=== PATIENT | male | born 1955 | race African-American/Black ===

== ENCOUNTER 2017-06-30 05:47 | Emergency (ER) | payer OTHER ==
[~2017-06-30] VITALS: Ht 172.7 cm; Wt 85.0 kg
[2017-06-30 05:51] VITALS: BP 143/92
[2017-06-30] MEDS ORDERED: HTN MED (06:51)
[2017-06-30] MEDS ORDERED: [UNRECOGNIZED DRUG - REMARK] (06:51)
[2017-06-30] MEDS ORDERED: IBUPROFEN 200 MG TABLET ONE (06:59)
[2017-06-30] MEDS ORDERED: HYDROcodone/APAP 5/325 TABLET ONE (06:59)
[2017-06-30] MEDS ORDERED: IBUPROFEN 200 MG TABLET PO ONE (07:00)
[2017-06-30] MEDS ORDERED: HYDROcodone/APAP 5/325 TABLET PO ONE (07:00)
== END 2017-06-30 08:19 | disposition home or self-care (01) ==
LOC: ED 07:48
DX: S93.492A Sprain of other ligament of left ankle, initial encounter (principal); S93.432A Sprain of tibiofibular ligament of left ankle, initial encounter; Z85.46 Personal history of malignant neoplasm of prostate; Z88.0 Allergy status to penicillin; X50.1XXA Overexertion from prolonged static or awkward postures, initial encounter; Y93.01 Activity, walking, marching and hiking; Y92.488 Other paved roadways as the place of occurrence of the external cause; Y99.8 Other external cause status
CPT/HCPCS: 99284

== ENCOUNTER 2019-01-04 10:37 | Inpatient (IN) | payer OTHER ==
[~2019-01-04] VITALS: Ht 177.8 cm; Wt 91.5 kg
[~2019-01-04 10:37] MED LIST: HTN MED; [UNRECOGNIZED DRUG - REMARK]
[2019-01-04] MEDS ORDERED: ONDANSETRON 2MG/ML, 2ML ONE (11:43)
[2019-01-04] MEDS ORDERED: MORPHINE SULFATE 4 MG/ML, 1ML ONE ×2 (11:43→14:41)
[2019-01-04] MEDS: MORPHINE SULFATE 4 MG/ML, 1ML IVPush PRN ×2 (11:54→14:42)
[2019-01-04] MEDS ORDERED: SODIUM CHLORIDE FLUSH 10ML SYR IVF ONE (12:00)
[2019-01-04] MEDS ORDERED: ONDANSETRON 2MG/ML, 2ML IVPush ONE (12:00)
--- NOTE | 2019-01-04 12:00 | NUR ---
BREAK RN NOTE: REPORT TAKEN FROM MANNIE CHOWDARY AT BEDSIDE. PT REPORTS GENERALIZED ABD PAIN AND SWELLING X 1 WEEK. PT IS A&O, RESPS EVEN AND UNLABORED. NO N/V AT THIS TIME. PT MEDICATED PER EMAR, TOLERATED WELL. PT REPORTS PAIN LEVEL IS DOWN FROM 10/10 TO 2/10. PT EDUCATED REGARDING POC, AWAITING CT AND DISPO AT THIS TIME. BP AND SPO2 MONITORS IN PLACE. CALL LIGHT IN REACH.
[2019-01-04 12:09] LABS: BASOPHILS # (AUTO) 0.03 x10^3/uL (0-0.1); BASOPHILS % (AUTO) 1 % (0-1); EOSINOPHILS # (AUTO) 0.21 x10^3/uL (0-0.4); EOSINOPHILS % (AUTO) 4 % (1-7); LYMPHOCYTES # (AUTO) 1.75 x10^3/uL (1-3.4); LYMPHOCYTES % (AUTO) 32 % (22-44); MD NO; MEAN CORPUSCULAR HEMOGLOBIN 31.1 pg (27.5-34.5); MEAN CORPUSCULAR HGB CONC 33.5 g/dL (33.2-36.2); MEAN PLATELET VOLUME 6.8 fL (7.4-10.4); MONOCYTES # (AUTO) 0.57 x10^3/uL (0.2-0.8); MONOCYTES % (AUTO) 11 % (2-9); NEUTROPHILS # (AUTO) 2.86 x10^3/uL (1.8-6.8); NEUTROPHILS % (AUTO) 53 % (42-75); PLATELET COUNT 188 x10^3/uL (130-400); RED CELL DISTRIBUTION WIDTH 13.8 % (9.4-14.8)
[2019-01-04 12:20] LABS: ALANINE AMINOTRANSFERASE 68 U/L (12-78); ALBUMIN 3.8 g/dL (3.4-5.0); ANION GAP 6 mmol/L (5-15); CALCIUM 8.9 mg/dL (8.5-10.1); CHLORIDE 105 mmol/L (98-107)
[2019-01-04 12:26] LABS: ALKALINE PHOSPHATASE 96 U/L (45-117); BILIRUBIN,TOTAL 0.4 mg/dL (0.2-1.0); CREATININE 1.82 mg/dL (0.7-1.3); TOTAL PROTEIN 8.9 g/dL (6.4-8.2)
--- NOTE | 2019-01-04 12:30 | NUR ---
EKG DONE BY THIS RN. REVIEWED BY EDMD.
--- NOTE | 2019-01-04 12:38 | NUR ---
REPORT TO PRIMARY RN RICARDA.
[2019-01-04] MEDS ORDERED: SODIUM CHLORIDE FLUSH 10ML SYR IVF PRN (14:00)
[2019-01-04] MEDS ORDERED: NS + 20MEQ KCL 1,000 ML IV SCH (14:04)
--- NOTE | 2019-01-04 14:24 | NUR ---
sbar to rene mercer
[2019-01-04] MEDS ORDERED: BISACODYL 10 MG SUPP PR PRN (14:30)
[2019-01-04] MEDS ORDERED: ONDANSETRON 2MG/ML, 2ML IVPush PRN (14:30)
[2019-01-04] MEDS ORDERED: hydrALAzine 20 MG/ML, 1ML IVPush PRN (14:30)
[2019-01-04] MEDS ORDERED: ACETAMINOPHEN 325 MG TABLET PO PRN (14:30)
[2019-01-04] MEDS ORDERED: POLYETHYLENE GLYCOL 17 GM PACKET PO PRN (14:30)
[2019-01-04 15:22] VITALS: BP 136/83
[2019-01-04 16:20] VITALS: BP 136/83
[2019-01-04 19:00] LABS: MICROSCOPIC AUTO
[2019-01-04 19:01] LABS: CULTURE INDICATED? YES
[2019-01-04 21:05] VITALS: BP 117/78
[2019-01-04] MEDS ORDERED: LISI-167 PO (21:21)
[2019-01-04] MEDS ORDERED: BICA50TA48 PO (21:21)
[2019-01-05 02:40] VITALS: BP 127/78
[2019-01-05 04:20] LABS: BASOPHILS # (AUTO) 0.03 x10^3/uL (0-0.1); BASOPHILS % (AUTO) 1 % (0-1); EOSINOPHILS # (AUTO) 0.23 x10^3/uL (0-0.4); EOSINOPHILS % (AUTO) 4 % (1-7); LYMPHOCYTES % (AUTO) 29 % (22-44); MD NO; MEAN CORPUSCULAR HEMOGLOBIN 31.1 pg (27.5-34.5); MEAN CORPUSCULAR HGB CONC 33.9 g/dL (33.2-36.2); MEAN CORPUSCULAR VOLUME 91.8 fL (81-97); MEAN PLATELET VOLUME 6.7 fL (7.4-10.4); MONOCYTES # (AUTO) 0.77 x10^3/uL (0.2-0.8); MONOCYTES % (AUTO) 13 % (2-9); NEUTROPHILS # (AUTO) 3.11 x10^3/uL (1.8-6.8); NEUTROPHILS % (AUTO) 53 % (42-75); PLATELET COUNT 166 x10^3/uL (130-400); RED BLOOD COUNT 4.79 x10^6/uL (4.38-5.82)
[2019-01-05 04:32] LABS: CHLORIDE 108 mmol/L (98-107)
[2019-01-05 04:37] LABS: ALANINE AMINOTRANSFERASE 65 U/L (12-78); ALBUMIN 3.7 g/dL (3.4-5.0); ALKALINE PHOSPHATASE 89 U/L (45-117); BILIRUBIN,TOTAL 0.7 mg/dL (0.2-1.0); CALCIUM 8.8 mg/dL (8.5-10.1); CREATININE 1.82 mg/dL (0.7-1.3); TOTAL PROTEIN 8.6 g/dL (6.4-8.2)
[2019-01-05] MEDS ORDERED: SODIUM POLYSTYRENE SULFONATE ORAL SUSP PO STA (04:55)
[2019-01-05 05:10] LABS: ANION GAP 3 mmol/L (5-15)
[2019-01-05] MEDS ORDERED: DEXTROSE 50%, 50ML SYRINGE IVPush ONE (07:00)
[2019-01-05] MEDS ORDERED: INSULIN REGULAR 100 UNITS/ML, 3ML VIAL IVPush ONE (07:00)
[2019-01-05] MEDS ORDERED: CALCIUM GLUCONATE 0.46MEQ/1ML IVPush ONE (07:00)
[2019-01-05] MEDS ORDERED: CALCIUM GLUCONATE 4.6 MEQ in SODIUM CHLORIDE 0.9% 50 ML IV ONE (07:00)
[2019-01-05] MEDS ORDERED: FUROSEMIDE 20 MG/2 ML IV ONE (07:00)
[2019-01-05] MEDS: BICALUTAMIDE 50 MG TABLET PO SCH (07:31)
[2019-01-05 09:54] VITALS: BP 130/80
[2019-01-05 16:11] VITALS: BP 130/81
[2019-01-05 19:53] VITALS: BP 145/80
[2019-01-06 01:38] VITALS: BP 129/79
[2019-01-06 07:34] LABS: ANION GAP 6 mmol/L (5-15); CALCIUM 9.4 mg/dL (8.5-10.1); CHLORIDE 101 mmol/L (98-107); CREATININE 1.82 mg/dL (0.7-1.3)
[2019-01-06] MEDS: BICALUTAMIDE 50 MG TABLET PO SCH (07:52)
[2019-01-06 07:59] VITALS: BP 134/81
[2019-01-06 08:17] LABS: BASOPHILS # (AUTO) 0.02 x10^3/uL (0-0.1); BASOPHILS % (AUTO) 0 % (0-1); EOSINOPHILS # (AUTO) 0.27 x10^3/uL (0-0.4); EOSINOPHILS % (AUTO) 4 % (1-7); LYMPHOCYTES # (AUTO) 2.33 x10^3/uL (1-3.4); LYMPHOCYTES % (AUTO) 32 % (22-44); MD NO; MEAN CORPUSCULAR HEMOGLOBIN 30.3 pg (27.5-34.5); MEAN CORPUSCULAR HGB CONC 32.8 g/dL (33.2-36.2); MEAN CORPUSCULAR VOLUME 92.3 fL (81-97); MEAN PLATELET VOLUME 6.8 fL (7.4-10.4); MONOCYTES # (AUTO) 1.07 x10^3/uL (0.2-0.8); MONOCYTES % (AUTO) 15 % (2-9); NEUTROPHILS % (AUTO) 49 % (42-75); PLATELET COUNT 167 x10^3/uL (130-400); RED BLOOD COUNT 5.03 x10^6/uL (4.38-5.82); RED CELL DISTRIBUTION WIDTH 13.2 % (9.4-14.8)
[2019-01-06 14:50] VITALS: BP 116/74
[2019-01-06 19:26] VITALS: BP 111/71
[2019-01-07 02:17] VITALS: BP 132/71
[2019-01-07 04:56] LABS: BASOPHILS # (AUTO) 0.03 x10^3/uL (0-0.1); BASOPHILS % (AUTO) 1 % (0-1); EOSINOPHILS # (AUTO) 0.29 x10^3/uL (0-0.4); EOSINOPHILS % (AUTO) 4 % (1-7); LYMPHOCYTES # (AUTO) 1.97 x10^3/uL (1-3.4); LYMPHOCYTES % (AUTO) 28 % (22-44); MD NO; MEAN CORPUSCULAR HEMOGLOBIN 31.1 pg (27.5-34.5); MEAN CORPUSCULAR HGB CONC 33.8 g/dL (33.2-36.2); MEAN PLATELET VOLUME 6.7 fL (7.4-10.4); MONOCYTES # (AUTO) 1.15 x10^3/uL (0.2-0.8); MONOCYTES % (AUTO) 16 % (2-9); NEUTROPHILS # (AUTO) 3.67 x10^3/uL (1.8-6.8); NEUTROPHILS % (AUTO) 52 % (42-75); PLATELET COUNT 168 x10^3/uL (130-400); RED BLOOD COUNT 4.66 x10^6/uL (4.38-5.82); RED CELL DISTRIBUTION WIDTH 13.6 % (9.4-14.8)
[2019-01-07 05:01] LABS: INTERNATIONAL NORMALIZED RATIO 1.13 (0.93-1.1); PROTHROMBIN TIME 11.9 Seconds (9.6-11.5)
[2019-01-07 05:06] LABS: ALBUMIN 3.3 g/dL (3.4-5.0); ANION GAP 4 mmol/L (5-15); CALCIUM 9.1 mg/dL (8.5-10.1); CHLORIDE 100 mmol/L (98-107)
[2019-01-07 05:11] LABS: ALANINE AMINOTRANSFERASE 52 U/L (12-78); ALKALINE PHOSPHATASE 90 U/L (45-117); BILIRUBIN,TOTAL 0.6 mg/dL (0.2-1.0); CREATININE 1.64 mg/dL (0.7-1.3); TOTAL PROTEIN 8.1 g/dL (6.4-8.2)
[2019-01-07] MEDS ORDERED: PINK LADY ENEMA 490 ML BOTTLE PR ONE (08:00)
[2019-01-07 08:15] VITALS: BP 112/75
[2019-01-07] MEDS: POLYETHYLENE GLYCOL 17 GM PACKET PO SCH (08:57)
[2019-01-07] MEDS: GABAPENTIN 100 MG CAPSULE PO SCH ×3 (08:57→20:21)
[2019-01-07] MEDS: BICALUTAMIDE 50 MG TABLET PO SCH (08:57)
[2019-01-07] MEDS: DOCUSATE 100 MG CAPSULE PO PRN ×2 (09:03→20:21)
[2019-01-07 12:16] VITALS: BP 107/75
[2019-01-07] MEDS ORDERED: SODIUM CHLORIDE 0.9%, 500ML IVBOLUS ONE (12:30)
[2019-01-07 12:45] LABS: TROPONIN I < 0.015 ng/mL (0.000-0.045)
[2019-01-07 13:12] VITALS: BP 115/70
[2019-01-07] MEDS ORDERED: ONDANSETRON IVPB ONE (15:00)
[2019-01-07] MEDS ORDERED: SODIUM CHLORIDE 0.9% IVPB ONE (15:00)
[2019-01-07] MEDS ORDERED: DEXAMETHASONE IVPB ONE (15:00)
[2019-01-07] MEDS ORDERED: DOCETAXEL IV ONE (16:00)
[2019-01-07] MEDS ORDERED: SODIUM CHLORIDE 0.9% IV ONE (16:00)
[2019-01-07 19:23] VITALS: BP 129/78
[2019-01-08 02:08] VITALS: BP 125/75
[2019-01-08 05:03] LABS: BASOPHILS # (AUTO) 0.01 x10^3/uL (0-0.1); BASOPHILS % (AUTO) 0 % (0-1); EOSINOPHILS % (AUTO) 0 % (1-7); LYMPHOCYTES % (AUTO) 22 % (22-44); MD NO; MEAN CORPUSCULAR HEMOGLOBIN 30.9 pg (27.5-34.5); MEAN CORPUSCULAR HGB CONC 33.5 g/dL (33.2-36.2); MEAN CORPUSCULAR VOLUME 92.3 fL (81-97); MEAN PLATELET VOLUME 7.1 fL (7.4-10.4); MONOCYTES # (AUTO) 0.14 x10^3/uL (0.2-0.8); MONOCYTES % (AUTO) 3 % (2-9); NEUTROPHILS # (AUTO) 3.47 x10^3/uL (1.8-6.8); NEUTROPHILS % (AUTO) 75 % (42-75); PLATELET COUNT 187 x10^3/uL (130-400); RED BLOOD COUNT 4.46 x10^6/uL (4.38-5.82); RED CELL DISTRIBUTION WIDTH 13.6 % (9.4-14.8)
[2019-01-08 05:10] LABS: ALANINE AMINOTRANSFERASE 49 U/L (12-78); ALBUMIN 3.1 g/dL (3.4-5.0); ANION GAP 7 mmol/L (5-15); CALCIUM 8.3 mg/dL (8.5-10.1); CHLORIDE 101 mmol/L (98-107); CREATININE 1.58 mg/dL (0.7-1.3)
[2019-01-08 05:13] LABS: ALKALINE PHOSPHATASE 85 U/L (45-117); BILIRUBIN,TOTAL 0.5 mg/dL (0.2-1.0); TOTAL PROTEIN 8.2 g/dL (6.4-8.2)
[2019-01-08] MEDS ORDERED: FUROSEMIDE 20 MG/2 ML IV ONE (07:30)
[2019-01-08] MEDS: POLYETHYLENE GLYCOL 17 GM PACKET PO SCH (07:51)
[2019-01-08] MEDS: GABAPENTIN 100 MG CAPSULE PO SCH ×2 (07:52→16:55)
[2019-01-08] MEDS: BICALUTAMIDE 50 MG TABLET PO SCH (08:00)
[2019-01-08 08:01] VITALS: BP 128/84
[2019-01-08] MEDS ORDERED: HYDR-3240 PO (13:03)
[2019-01-08 15:45] VITALS: BP 126/71
[2019-01-08] MEDS ORDERED: DEXAMETHASONE 4 MG TABLET PO ONE (17:00)
== END 2019-01-08 17:01 | disposition home or self-care (01) | DRG 723 ==
LOC: ED 12:19 → EDIP 13:50 → 3NW 15:10
PROVIDERS: ADMIT Hospitalist; ATTEND Hospitalist
DX: C61 Malignant neoplasm of prostate (principal); N13.8 Other obstructive and reflux uropathy; N13.30 Unspecified hydronephrosis; E87.1 Hypo-osmolality and hyponatremia; N17.8 Other acute kidney failure; C78.00 Secondary malignant neoplasm of unspecified lung; Z88.0 Allergy status to penicillin; E87.5 Hyperkalemia; I11.9 Hypertensive heart disease without heart failure; N26.1 Atrophy of kidney (terminal); Z83.3 Family history of diabetes mellitus; R73.9 Hyperglycemia, unspecified
CPT/HCPCS: 0399T; 36415; 74176; 76700; 80048; 80053; 81001; 83690; 84132; 84402; 84403; 84484; 85025; 85610; 87086; 93005; 93306; 93970; 96374; 96375; 96376; G0103; G0378; J0610; J1100; J1815; J2405; J3480; J9171; J1940; J7040; J7050